=== PATIENT | female | born 2005 | race Caucasian/White ===

== ENCOUNTER 2023-03-08 20:30 | Emergency (ER) | payer MEDICAID, SELFPAY ==
[2023-03-08 20:31] VITALS: BP 113/81; PULSE 73; RESP 15; TEMP 36.4; O2SAT 98; BMI 23.7
--- NOTE | 2023-03-08 21:55 | RAD_ITS ---
INDICATION: Productive cough EXAMINATION/TECHNIQUE: X-RAY - XR Chest 2 Views COMPARISON: None. FINDINGS: LINES/DEVICES: None. LUNGS: No consolidation. No pneumothorax. MEDIASTINUM: Unremarkable. CARDIAC SILHOUETTE: Not enlarged. BONES AND SOFT TISSUES: No acute abnormalities. RAD/Chest PA and Lateral IMPRESSION: No evidence of active intrathoracic disease. Electronically Signed: Ciarra Pugh MD at 22:20 EST ,
--- NOTE | 2023-03-08 21:59 | EDS_ITS ---
HPI History of Present Illness Chief Complaint: Chest Pain Detail of Chief Complaint: Heartburn indigestion epigastric area and upper respiratory symptoms Informant: patient Onset/Context/Timing Onset: Days (11 to 12 days of respiratory symptoms and heartburn epigastric subxiphoid region) Context: Gradual Onset (With respect to the upper respiratory symptoms) and Sudden Onset (With respect to the heartburn) Timing: Continuous and Waxes and wanes Quality: Upper respiratory tract infectious symptoms and heartburn Location: Chest and epigastric area Current Severity: Mild Maximum Severity: Moderate Worsened by: Heartburn with eating Relieved by: Nothing Associated Symptoms Associated Symptoms: Congestion, postnasal drainage, sore throat and productive cough Narrative Narrative: Patient is a 18-year-old female who presents with upper respiratory tract infections that started 11 to 12 days ago. She has a productive cough of yellow to grayish colored sputum. She smokes marijuana. She states she has a couple joints per week. She does not smoke tobacco. She denies drug use other than the marijuana. She denies fever, chills night sweats. Denies headache, photophobia, neck pain or neck stiffness. She denies history of PE or DVT. She denies leg pain, swelling discoloration. She has no risk factors for VTE. Patient is PERC negative. Patient denies vomiting. She does complain nausea. She denies black or maroon-colored stool. She denies intolerance to greasy or fried foods. There is no family history of cholelithiasis. Prior similar symptoms: No Recent Illness/Hospitalization: No PFSH PFSH Medical History no medical history no medical history Home Medications albuterol sulfate 90 mcg/actuation aerosol inhaler (Ventolin HFA) 2 puff inhalation Q4H PRN PRN Wheezing ##1 03/08/23 [Rx Last Taken Unknown] famotidine 40 mg tablet (Pepcid) 40 mg PO DAILY #14 tabs 03/08/23 [Rx Last Taken Unknown] lisdexamfetamine 70 mg capsule (Vyvanse) 70 mg PO DAILY 03/08/23 [History Last Taken Unknown] Allergy/AdvReac Type Severity Reaction Status Date / Time methylphenidate AdvReac Abd Verified 03/08/23 20:36 [From Concerta] cramps/diarrhea Surgical History no surgical history no surgical history Social History (Updated 11/14/23 @ 22:[address] Marshall Santo MD) household members: significant other Smoking Status: Never smoker alcohol intake: never substance use type: marijuana ROS ROS ED Constitutional Constitutional ED: Denies chills, fever(s), subjective, sweats or weight loss Eyes Eyes: Denies blurry vision, change in vision or diplopia ENT ENT ED: Reports sore throat; Denies ear pain or rhinorrhea Cardiovascular Cardiovascular: Reports chest pain; Denies orthopnea, palpitations, paroxysmal nocturnal dyspnea or racing heartbeat Respiratory/Chest Respiratory/Chest: Reports cough; Denies dyspnea, dyspnea on exertion, orthopnea or paroxysmal nocturnal dyspnea Gastrointestinal Gastrointestinal: Reports abdominal pain and nausea; Denies constipation, diarrhea, melena or vomiting Genitourinary Genitourinary ED: Denies dysuria, hematuria or urinary frequency Musculoskeletal Musculoskeletal: Denies arthralgias, back pain or myalgias Integumentary Denies rash Psychiatric Psychiatric: Reports anxiety Hematologic/Lymphatic Hematologic/Lymphatic: Reports systems reviewed and no addt'l complaints, except as documented EXAM Physical Exam Const Vital Signs: 03/08/23 20:31 03/08/23 21:33 03/08/23 22:00 Temperature 97.6 F L Temperature Source Temporal Pulse Rate 73 68 Respiratory Rate 15 18 Respiratory Effort Normal Non-Labored Blood Pressure 113/81 H 126/88 H Blood Pressure Mean 91 100 Pulse Ox 98 Oxygen Delivery Method Room Air Positive well nourished and well developed General Appearance ED: well developed and NAD; Negative for cyanotic, diaphoretic or pallor HEENT Reports moist mucous membranes HEENT Narrative: Head is atraumatic and normocephalic. Ears are normal. TMs are normal. Nares patent. Posterior pharynx out erythema or exudate. Uvula is midline. Eyes PERRL and EOMs intact bilaterally General Eye ED: Negative for pale conjunctiva or scleral icterus Neck no lymphadenopathy, supple and no JVD Chest Wall inspection of chest normal and palpation of chest normal Resp normal respiratory effort and clear to auscultation bilaterally Cardio regular rate, regular rhythm, S1 normal heart sound, S2 normal heart sound and no murmurs GI normal to inspection, nondistended, normoactive bowel sounds, non-tender, non- distended and no masses; Negative for hepatosplenomegaly Back/Spine no CVA tenderness Thoracic Spine / Upper Back: Negative for thoracic spinal tenderness Lumbar Spine / Lower Back: Negative for lumbar spinal tenderness Extremity normal to inspection Extremity Narrative: There is no asymmetry, swelling, discoloration, leg vein distention, palpable cords or tenderness along the distribution of the deep venous system. Neuro oriented x3, CN's II-XII intact bilaterally and no sensory deficits noted Sensorium / Orientation: alert Motor Exam: strength 5/5 throughout Psych mental status grossly normal Skin no rashes or lesions noted, no wounds and skin turgor normal General Skin Exam: elasticity normal; Negative for jaundice or pallor MDM MDM MDM Narrative Medical decision making narrative: Patient having a productive cough for essentially 2 weeks will obtain chest x- ray to evaluate for pneumonia. Based on patient's description of the pain and location and the fact that food makes it worse GI cocktail was ordered. In my opinion at this point no laboratory tests are needed. Radiography Chest X-Ray - ED: 2 View (In the panel I reviewed interpreted by me at 2216 as negative. Cardiac silhouette and size normal. Perihilar region normal. Lung parenchyma normal. Osseous structures are unremarkable.) Treatment and Re-Evaluation :: Patient was reassessed at 2219. There is some improvement of her heartburn. She just received the GI cocktail. Will discharge to home with prescription for Pepcid and metered-dose inhaler. Discharge Plan Triage Chief Complaint: Chest Pain ED Provider: Marshall Santo Dx/Rx/DC Orders Clinical Impression: Heartburn, Acute purulent bronchitis Instructions: ED Bronchitis, No Antibiotic (Adult), ED Gastritis (Adult) Prescriptions: New albuterol sulfate [Ventolin HFA] 90 mcg/actuation HFA aerosol inhaler 2 puff inhalation Q4H PRN PRN (Reason: Wheezing) Qty: 1 0RF famotidine [Pepcid] 40 mg tablet 40 mg PO DAILY Qty: 14 0RF No Action lisdexamfetamine [Vyvanse] 70 mg capsule 70 mg PO DAILY Primary Care Provider: Care Physician,No Primary Referrals: Fast,Kim, DO [Med Staff - Acquisitions Analyst] - 1 Week if not improving Care Physician,No Primary [Primary Care Provider] - Disposition Disposition: Home, Self Care
[2023-03-08 22:00] VITALS: BP 126/88; PULSE 68; RESP 18
[2023-03-08] MEDS: Mag Hydrox/Al Hydrox/Simeth 30 ML UDC PO (22:01)
[2023-03-08 22:35] VITALS: BP 122/78; PULSE 72; RESP 18; O2SAT 100
== END 2023-03-08 22:36 | disposition home or self-care (01) ==
PROVIDERS: Emergency Provider Emergency Medicine; Visit Provider Emergency Medicine
DX: R12 Heartburn (principal); J20.9 Acute bronchitis, unspecified
CPT/HCPCS: 71046; 99284; A4216

== ENCOUNTER 2023-05-28 01:26 | Emergency (ER) | payer SELFPAY ==
[2023-05-28 01:27] VITALS: BP 112/76; PULSE 92; RESP 16; TEMP 36; O2SAT 100; BMI 25.2
[2023-05-28 01:34] VITALS: BP 112/76; PULSE 84; RESP 16; TEMP 36.6; O2SAT 100
--- OUTSIDE RECORDS SUMMARY | 2023-05-28 01:54 | XMS RPT_ITS | CCD ---
Author Name Unknown Address [address] [place] [id number] Organization [facility] Care Team Providers Care Hog Room Supervisor Name Role Phone Froilan COOPER, Nani Heck Primary Care Provider NANI MCGOVERN Primary Care Unavaila JYOTI Kuhn Attending Unavailabl e NOTH, SHARYN HAYES Attending Unavailable NANI MCGOVERN Primary Care Unavaila ble MARITZA PEPE Admitting Unavailable NANI MCGOVERN Primary Care Unavaila MARITZA Locke Attending Unavailable SUSIE CAREY Consulting Unavailable STINANI BALBUENA Primary Care Unavaila ble JIL HEART Attending Unavailab le FROILAN, NANI HECK Primary Care Unavaila ble ARASELI HENSON Admitting Unavai lable ARASELI HENSON Attending Unavai labamalia Allergies Allergy Classification Reported Allergen(s) Allergy Type Date of Onset Reaction(s) Facility (1 source) ALLERGIES NOT ON FILE; Translations: [ALLERGIES NOT ON FILE] Propensity to adverse reactions (disorder) [facility] Repository Medications Current Medications Medication Drug Class(es) Dates Sig (Normalized) Sig (Original) 24 hr amphetamine aspartate 7.5 mg / amphetamine sulfate 7.5 mg / dextroamphetamine saccharate 7.5 mg / dextroamphetamine sulfate 7.5 mg extended release oral capsule (2 sources) Central Nervous System Stimulant Start: 10-20-2020 take 1 capsule by mouth once daily in the morning Adderall XR 30 mg 24 hr capsule TAKE ONE CAPSULE BY MOUTH DAILY IN THE MORNING 0 10/20/2020 Active levonorgestrel 0.962487 mg/hr intrauterine system (2 sources) Progestin, Progestin-containin g Intrauterine Device levonorgestreL (MIRENA) 20 mcg/24 hours (6 yrs) 52 mg IUD 1 each by Intrauterine route once . 0 Active metroNIDAZOLE 500 mg oral tablet (2 sources) Nitroimidazole Antimicrobial Start: 11-08-2020 End: 11-15-2020 take 1 tablet by mouth twice daily at mealtime metroNIDAZOLE (FlagyL) 500 MG tablet Indications: Bacterial vaginitis Take 1 (one) tablet (500 mg total) by mouth 2 (two) times a day with meals for 7 days . 14 tablet 0 11/08/2020 11/15/2020 Active Problems Problem Classification Problem Date Documented Date Episodic/Chronic Attention-deficit, conduct, and disruptive behavior disorders (2 sources) Attention-deficit hyperactivity disorder, combined type; Translations: [Attention-deficit hyperactivity disorder, combined type] Onset: 02-04-2023 Chronic Inflammatory diseases of female pelvic organs (4 sources) Acute vaginitis; Translations: [Acute vaginitis] Episodic Unclassified (2 sources) PA request Onset: 04-28-2023 Results Test Name Value Interpretation Reference Range Facil ity Vital Signs Date Time Vital Sign Value Performing Clinician Faci lity 11-08-2020 17:06-0400 Body height 165.1 cm Jyoti Mariannarory [facility] Work Phone: [facility] 11-08-2020 17:06-0400 Body mass index (BMI) [Ratio] 21.63 kg/m2 Jyoti Mariannarory [facility] Work Phone: [facility] 11-08-2020 17:06-0400 Body temperature 97.7 [degF] Jyoti Pickens [facility] Work Phone: [facility] 11-08-2020 17:06-0400 Body weight 58.97 kg Jyoti Pickens [facility] Work Phone: [facility] 11-08-2020 17:06-0400 Diastolic blood pressure 71 mm[Hg] Jyoti Pickens [facility] Work Phone: [facility] 11-08-2020 17:06-0400 Heart rate 99 /min Jyoti Pickens [facility] Work Phone: [facility] 11-08-2020 17:06-0400 Respiratory rate 16 /min Jyoti Pickens CNP Work Phone: [facility] 11-08-2020 17:06-0400 SaO2% (BldA) [Mass fraction] 97 % Jyoti Pickens CNP Work Phone: [facility] 11-08-2020 17:06-0400 Systolic blood pressure 105 mm[Hg] Jyoti Pickens CNP Work Phone: [facility] Encounters Encounter Date Encounter Type Care Provider Facility Start: 04-28-2023 ambulatory [facility] Start: 03-15-2023 ambulatory [facility] Start: 02-04-2023 ambulatory [facility] Start: 06-02-2021 End: 06-05-2021 Evaluation and management of inpatient [facility] Start: 06-01-2021 End: 06-02-2021 ambulatory [facility] Start: 05-27-2021 End: 05-27-2021 ambulatory [facility] Start: 12-04-2020 End: 12-04-[facility]: 11-08-2020 End: 11-08-2020 ambulatory [facility] Start: 11-08-2020 End: 11-08-2020 Office outpatient new 30 minutes Jyoti Pickens CNP Work Phone: [facility] [place] Procedures Date Procedure Procedure Detail Performing Clinician Start: 11-08-2020 Infectious agent enzymatic actv oth/thn virus Jyoti Pickens CNP Work Phone: Plan of Treatment Date Care Activity Detail Author Start: 07-02-2024 Tetanus vaccination Tetanus: Every [address] [facility] Start: 07-02-2024 Vaccination for diph theria, pertussis, and tetanus DTAP Vaccines (7 - Td or Tdap) [facility] Start: 12-24-2020 Influenza vaccination Sequenti al Influenza Vaccine (#1) [facility] Start: 2018 HIV screening HIV Screening [facility] Start: 09-27-2017 Vaccination for andrew n papillomavirus HPV Vaccines (2 - 2-dose series) [facility] Start: 2015 Depression screening using PHQ-9 (Patient Health Questionnaire 9) score Depression Screening (PHQ9) [facility] Start: 03-04-2015 Varicella vaccination Varicell a Vaccines (2 of 2 - 2-dose childhood series) [facility] Start: 2006 History and physical examination, annual for health maintenance Wellness Visit [facility] Start: 2003 Screening for Chlamy vijay trachomatis Chlamydia Screening [facility] Chlamydia trachomati s rRNA assay Chlamydia/GC/Trichomonas Amplified RNA Microbiology Routine Bacterial vaginitis 11/08/2020 8:50 PM EDT [facility] Genital microscopy, culture and sensitivities Genital Aerobic Culture Microbiology Routine Acute vaginitis 11/08/2020 5:31 PM EDT [facility] Neisseria gonorrhoea e nucleic acid detection Chlamydia/Gonorrhoeae Amplified RNA Microbiology Routine Bacterial vaginitis 11/08/2020 8:50 PM EDT [facility] Trichomonas vaginali s Amplified RNA Trichomonas vaginalis Amplified RNA Microbiology Routine Bacterial vaginitis 11/08/2020 8:50 PM EDT [facility] Immunizations Immunization Date Immunization Notes Care Provider Michel cerna 03-29-2017 HPV, unspecified formulation Jyoti Pickens CNP Work Phone: [facility] 04-01-2004 varicella virus vaccine Harjit bennette Nelia [facility] Work Phone: [facility] Payers Date Payer Category Payer Unknown [employer] [facility] [employer] [id number] 2020-Present [id number] 2020 Unknown [id number] 2003 Unknown [id number] 2003 Unknown [id number] 2003 Unknown [id number] 1969 Unknown [id number] 1969 Unknown [id number] Social History Date Type Detail Facility Start: 11-08-2020 Tobacco smoking status NHIS Never sm oker [facility] Start: 11-08-2020 Tobacco use and exposure Never used [facility] Start: 11-08-2020 Alcohol intake Current drinke r of alcohol (finding) [facility] Start: 11-08-2020 Alcohol Comment occ [facility] Start: 2003 Sex Assigned At Not on file [facility] Exposure to SARS-CoV -2 (event) Not sure [facility] Note 11-08-2020 Addendum Note - Chris Lockhart - 11/08/2020 8:50 PM EDT Note Date & Type Note Facility 11-08-2020 Miscellaneous Notes Addended by: CHRIS LOCKHART on: 11/08/2020 08:50 PM Modules accepted: Orders documented in this encounter [facility] History of Present illness Narrative 11-08-2020 Jyoti Pickens CNP - 11/08/2020 5:30 PM EDT Note Date & Type Note Facility 11-08-2020 History of Presen t illness Narrative Images from the original note were not included. Patient Name: [facility] Urgent Care Location: [place] [address] Date Of : Date Of Visit: 2005 11/08/2020 MRN# Provider: [id number] Jyoti Pickens CNP Chief Complaint Patient presents with Vaginal Discharge vaginal itchiness, vaginal odor, and peachy orange vaginal discharge x 3-4 days Assessment & Plan 1. Bacterial vaginitis metroNIDAZOLE (FlagyL) 500 MG tablet 2. Acute vaginitis POC Bacterial Vaginosis POC Rapid Trichomonas Chlamydia/Gonorrhoeae Amplified RNA Genital Aerobic Culture Chlamydia/GC/Trichomonas Amplified RNA Return for 1-3 days as needed for continued symptoms. Medical Decision Making Patient is here with c/o vaginal discharge, itching, and odor for 3-4 days. She has unprotected sex with males, and uses Mirena for contraception. She has no menstrual changes. POC BV; positive POC trich: not completed Genital culture, GC/CT/trich sent to lab. Please call patient cell at [phone] with all test results. Additional Clinical Comments Discussed over the counter medications for symptomatic management and side effects of medications. Recommended taking all medications with food and to stop medications if they develop any signs of an allergic reaction. Educated patient and/or guardian about signs and symptoms that would warrant further immediate evaluation. Recommended that they should return to urgent care, make an appointment with their family physician, or go to the emergency room if symptoms persist or get acutely worse. Recommended follow up within the next week with their PCP or to get established with a PCP soon in order to follow up appropriately. Subjective 15 y.o. female presents with Vaginal Discharge (vaginal itchiness, vaginal odor, and peachy orange vaginal discharge x 3-4 days) Patient is here with c/o 3-4 days of vaginal itching, odor, and increased discharge. She is sexually active with males, and does not use condoms. She has never had an STI. She has a Mirena in place, and has normal menses. She denies menstrual changes. She denies abdominal pain, and vaginal rash. Review Of Systems Review of Systems Constitutional: Negative for fatigue and fever. Respiratory: Negative for cough. Cardiovascular: Negative for chest pain. Genitourinary: Positive for vaginal discharge. Negative for dysuria, frequency, genital sores, menstrual problem, pelvic pain, urgency and vaginal pain. Neurological: Negative for headaches. All other systems reviewed and are negative. Medical History History reviewed. No pertinent past medical history. History reviewed. No pertinent surgical history. There is no problem list on file for this patient. Social History Social History Tobacco Use Smoking status: Never Smoker Smokeless tobacco: Never Used Vaping Use Vaping Use: Never used Substance Use Topics Alcohol use: Yes Comment: occ Drug use: Never Family History History reviewed. No pertinent family history. Objective Physical Exam BP 105/71 (BP Location: Left arm, Patient Position: Sitting, BP Cuff Size: Adult) Pulse 99 Temp 97.7 F (36.5 C) (Tympanic) Resp 16 Ht 5' 5 Wt 59 kg (130 lb) LMP 10/15/2020 SpO2 97% BMI 21.63 kg/m Vision/Hearing Exam:No exam data present Physical Exam Vitals and nursing note reviewed. Constitutional: Appearance: Normal appearance. She is normal weight. HENT: Head: Normocephalic and atraumatic. Right Ear: External ear normal. Left Ear: External ear normal. Nose: Nose normal. Eyes: Conjunctiva/sclera: Conjunctivae normal. Pulmonary: Effort: Pulmonary effort is normal. Musculoskeletal: General: Normal range of motion. Cervical back: Normal range of motion. Skin: General: Skin is warm and dry. Neurological: General: No focal deficit present. Mental Status: She is alert and oriented to person, place, and time. Psychiatric: Mood and Affect: Mood normal. Behavior: Behavior normal. Thought Content: Thought content normal. Judgment: Judgment normal. Procedure Notes Procedures Results No results found for this or any previous visit (from the past 168 hour(s)). No orders to display Orders Placed This Visit Orders Placed This Encounter Procedures Chlamydia/Gonorrhoeae Amplified RNA Genital Aerobic Culture Chlamydia/GC/Trichomonas Amplified RNA POC Bacterial Vaginosis POC Rapid Trichomonas Medication List At End Of Visit Current Outpatient Medications Medication Sig Dispense Refill Adderall XR 30 mg 24 hr capsule TAKE ONE CAPSULE BY MOUTH DAILY IN THE MORNING levonorgestreL (MIRENA) 20 mcg/24 hours (6 yrs) 52 mg IUD 1 each by Intrauterine route once . metroNIDAZOLE (FlagyL) 500 MG tablet Take 1 (one) tablet (500 mg total) by mouth 2 (two) times a day with meals for 7 days . 14 tablet 0 No current facility-administered medications for this visit. Patient Instructions Bacterial Vaginosis in Teens: Care Instructions Overview Bacterial vaginosis is a type of vaginal infection. It is caused by excess growth of certain bacteria that are normally found in the vagina. Symptoms can include itching, swelling, pain when you urinate or have sex, and a melchor or yellow discharge with a fishy odor. It is not considered an infection that is spread through sexual contact. Symptoms can be annoying and uncomfortable. But bacterial vaginosis does not usually cause other health problems. However, if you have it while you are , it can cause complications. While the infection may go away on its own, most doctors use antibiotics to treat it. You may have been prescribed pills or vaginal cream. With treatment, bacterial vaginosis usually clears up in 5 to 7 days. Follow-up care is a luong part of your treatment and safety. Be sure to make and go to all appointments, and call your doctor if you are having problems. It's also a good idea to know your test results and keep a list of the medicines you take. How can you care for yourself at home? Take your antibiotics as directed. Do not stop taking them just because you feel better. You need to take the full course of antibiotics. Do not eat or drink anything that contains alcohol if you are taking metronidazole or tinidazole. Keep using your medicine if you start your period. Use pads instead of tampons while using a vaginal cream or suppository. Tampons can absorb the medicine. Wear loose cotton clothing. Do not wear nylon and other materials that hold body heat and moisture close to the skin. Do not scratch. Relieve itching with a cold pack or a cool bath. Do not wash your vaginal area more than once a day. Use plain water or a mild, unscented soap. Do not douche. When should you call for help? Call your doctor now or seek immediate medical care if: You have new or worse belly or pelvic pain. Watch closely for changes in your health, and be sure to contact your doctor if: You do not get better as expected. Where can you learn more? Log into your personal health record on?https://[employer]t.OpVista?and enter?E873?in the Education box to learn more about Bacterial Vaginosis in Teens: Care Instructions. Current as of: June 05, 2020 Content Version: 12.9 [facility]. Care instructions adapted under license by your healthcare professional. If you have questions about a medical condition or this instruction, always ask your healthcare professional. [employer] disclaims any warranty or liability for your use of this information. documented in this encounter [facility] Instructions 11-08-2020 Patient Instructions Note Date & Type Note Facility 11-08-2020 Jyoti Valdes CNP - 11/08/2020 5:25 PM EDT Images from the original note were not included. Bacterial Vaginosis in Teens: Care Instructions Overview Bacterial vaginosis is a type of vaginal infection. It is caused by excess growth of certain bacteria that are normally found in the vagina. Symptoms can include itching, swelling, pain when you urinate or have sex, and a melchor or yellow discharge with a fishy odor. It is not considered an infection that is spread through sexual contact. Symptoms can be annoying and uncomfortable. But bacterial vaginosis does not usually cause other health problems. However, if you have it while you are , it can cause complications. While the infection may go away on its own, most doctors use antibiotics to treat it. You may have been prescribed pills or vaginal cream. With treatment, bacterial vaginosis usually clears up in 5 to 7 days. Follow-up care is a luong part of your treatment and safety. Be sure to make and go to all appointments, and call your doctor if you are having problems. It's also a good idea to know your test results and keep a list of the medicines you take. How can you care for yourself at home? Take your antibiotics as directed. Do not stop taking them just because you feel better. You need to take the full course of antibiotics. Do not eat or drink anything that contains alcohol if you are taking metronidazole or tinidazole. Keep using your medicine if you start your period. Use pads instead of tampons while using a vaginal cream or suppository. Tampons can absorb the medicine. Wear loose cotton clothing. Do not wear nylon and other materials that hold body heat and moisture close to the skin. Do not scratch. Relieve itching with a cold pack or a cool bath. Do not wash your vaginal area more than once a day. Use plain water or a mild, unscented soap. Do not douche. When should you call for help? Call your doctor now or seek immediate medical care if: You have new or worse belly or pelvic pain. Watch closely for changes in your health, and be sure to contact your doctor if: You do not get better as expected. Where can you learn more? Log into your personal health record on?https://[employer].OpVista?and enter?E873?in the Education box to learn more about Bacterial Vaginosis in Teens: Care Instructions. Current as of: June 05, 2020 Content Version: 12.9 [facility]. Care instructions adapted under license by your healthcare professional. If you have questions about a medical condition or this instruction, always ask your healthcare professional. [facility] disclaims any warranty or liability for your use of this information. documented in this encounter [facility] Evaluation note Note Date & Type Note Facility documented in this encounter [facility] Summary Purpose Family History No Family History Records FoundNo Family History Records FoundNo Family History Records FoundNo Family History Records FoundNo Family History Records Found Advance Directives No Advanced Directives Records FoundDocuments on File Type Date Recorded Patient [employer] Expl anation Advance Directives and Living Will Additional Source Comments INFORMATION SOURCE (unrecogn ized section and content) DATE CREATED AUTHOR AUTHOR'S ORGANIZ ATION 12/06/2020 [facility] DATE CREATED AUTHOR AUTHOR'S ORGANIZ ATION 06/05/2021 [facility] DATE CREATED AUTHOR AUTHOR'S ORGANIZ ATION 06/07/2021 [facility] DATE CREATED AUTHOR AUTHOR'S ORGANIZ ATION 04/30/2023 [facility] Reason for Visit (unrecogniz ed section and content) FOR RECORDS PERTAINING TO PATIENTS WHO ARE OR HAVE BEEN ENROLLED IN A CHEMICAL DEPENDENCY/SUBSTANCEABUSE PROGRAM, SOME INFORMATION MAY BE OMITTED. This clinical summary was aggregated from multiple sources. Caution should be exercised in using it in the provision of clinical care. This summary normalizes information from multiple sources, and as a consequence, information in this document may materially change the coding, format and clinical context of patient data. In addition, data may be omitted in some cases. CLINICAL DECISIONS SHOULD BE BASED ON THE PRIMARY CLINICAL RECORDS. [employer] provides no warranty or guarantee of the accuracy or completeness of information in this document.
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
[2023-05-28 03:09] VITALS: BP 113/74; PULSE 87; RESP 16; O2SAT 97
--- NOTE | 2023-05-28 03:11 | ED.RN ---
at discharge patient was picked up by campus security and is being taken back to [facility] to be monitored. Pt ambulated self out of department with security.
== END 2023-05-28 03:11 | disposition home or self-care (01) ==
PROVIDERS: Emergency Provider Emergency Medicine; Visit Provider Emergency Medicine
DX: F10.129 Alcohol abuse with intoxication, unspecified (principal); Y90.7 Blood alcohol level of 200-239 mg/100 ml; R11.2 Nausea with vomiting, unspecified; F32.A Depression, unspecified; F41.9 Anxiety disorder, unspecified; F17.290 Nicotine dependence, other tobacco product, uncomplicated; Z79.899 Other long term (current) drug therapy
CPT/HCPCS: 36415; 80320; 99282; G0480